=== PATIENT | male | born 1935 | race Caucasian/White ===

== ENCOUNTER 2016-07-20 03:26 | Emergency (ER) | payer MEDICARE, BC ==
[2016-07-20] MEDS ORDERED: IPRATROPIUM/ALBUTEROL (0.5MG/3MG) NEB INH ONE (03:33)
--- NOTE | 2016-07-20 03:38 | Emergency Department Record ---
History of Present Illness - General Chief Complaint: Difficulty Breathing Stated Complaint: jaya Time Seen by Provider: 07/20/16 03:31 Source: Patient Mode of Arrival: Ambulatory Limitations: No limitations - History of Present Illness Initial Comments: 80 yo male presents to ED with a CC of difficulty breathing and non-productive cough symptoms for the past 2-3 days. Patient denies fevers, or chills, does report "chest heaviness". Patient denies previous history of lung problems ( record reveals COPD), reports history of CAD s/p stents x4, IDDM, and HTN. MD Complaint: Shortness of breath Onset/Timin -: Days(s) Severity: Moderate Quality: Other ("heavy") Consistency: Intermittent Improves With: Nothing Worsens With: Exertion Known History Of: COPD Context: Recent illness, Recent URI Associated Symptoms: Denies other symptoms Treatments Prior to Arrival: None - Related Data Home Oxygen Therapy: No Home Medications Medication Instructions Recorded Confirmed Last Taken Hydrochlorothiazide [Hctz 25Mg] 25 mg PO DAILY 02/10/15 07/20/16 02/15/16 Insulin Glargine,Hum.rec.anlog 27 units SQ QPM 02/10/15 07/20/16 02/14/16 [Lantus] Insulin Lispro [Humalog] 4 units SQ TID 02/10/15 07/20/16 02/15/16 Levothyroxine Sodium [Synthroid] 100 mcg PO DAILY 02/10/15 07/20/16 02/15/16 Lisinopril [Zestril] 20 mg PO DAILY 02/10/15 07/20/16 02/15/16 Metformin HCl [Metformin HCl] 1,000 mg PO BID 02/10/15 07/20/16 02/15/16 Simvastatin [Zocor] 40 mg PO DAILY 02/10/15 07/20/16 02/14/16 Clopidogrel Bisulfate [Plavix] 75 mg PO DAILY 07/20/16 07/20/16 Unknown Metoprolol Tartrate [Metoprolol 12.5 mg PO BID 07/20/16 07/20/16 Unknown Tartrate] Pantoprazole Sodium [Protonix] 40 mg PO DAILY 07/20/16 07/20/16 Unknown Previous Rx's Medication Instructions Recorded Albuterol Sulfate [Proair Hfa] 2 puff IH QID PRN #1 inhaler 02/15/16 Prednisone [Prednisone 20Mg] 20 mg PO DAILY #15 tab 07/20/16 Allergies Allergy/AdvReac Type Severity Reaction Status Date / Time Penicillins Allergy Unknown HIVES Verified 07/20/16 03:28 Review of Systems Constitutional: Denies: Chills, Fever, Malaise, Night sweats Eyes: Denies: Eye discharge, Eye pain ENT: Denies: Congestion, Ear pain, Epistaxis Respiratory: Reports: Cough, Dyspnea Cardiovascular: Reports: Chest pain. Denies: Dyspnea on exertion Endocrine: Denies: Fatigue, Heat or cold intolerance Gastrointestinal: Denies: Abdominal pain, Nausea, Vomiting Musculoskeletal: Denies: Arthralgia, Back pain, Gout, Joint swelling Skin: Denies: Bruising, Change in color Neurological: Denies: Abnormal gait, Confusion, Seizure Psychiatric: Denies: Anxiety Hematological/Lymphatic: Denies: Anemia, Blood Clots Past Medical History - SOCIAL HISTORY Smoking Status: Former smoker - RESPIRATORY Hx Respiratory Disorders: Yes - CARDIOVASCULAR Hx Cardio Disorders: Yes Hx Hypertension: Yes Comment:: high cholesterol - NEURO Hx Neuro Disorders: No - GI Hx GI Disorders: Yes Hx Reflux: Yes (occasional) Comment:: dysphagia - Hx Genitourinary Disorders: Yes Hx Bladder Problem: Yes (infection (a few years ago)) - ENDOCRINE Hx Endocrine Disorders: Yes Hx Diabetes: Yes Hx Thyroid Disease: Yes (low) - MUSCULOSKELETAL Hx Musculoskeletal Disorders: Yes Hx Arthritis: Yes - PSYCH Hx Psych Problems: No - HEMATOLOGY/ONCOLOGY Hx Hematology/Oncology Disorders: No Family Medical History Hx Dementia: Mother Hx HTN: Mother Hx Stroke: Mother Physical Exam - General General Appearance: Alert, Oriented x3, Cooperative, Mild distress Limitations: No limitations - Head Head exam: Atraumatic, Normocephalic, Normal inspection Head exam detail: negative: Abrasion, Contusion, Jackson's sign, General tenderness, Hematoma, Laceration - Eye Eye exam: Normal appearance. negative: Conjunctival injection, Periorbital swelling, Periorbital tenderness, Scleral icterus - ENT Ear exam: negative: Auricular hematoma, Auricular trauma Nasal Exam: negative: Active bleeding, Discharge, Dried blood, Foreign body Mouth exam: negative: Drooling, Laceration, Muffled voice, Tongue elevation - Neck Neck exam: Normal inspection. negative: Meningismus, Tenderness - Respiratory Respiratory exam: Decreased breath sounds, Wheezes. negative: Respiratory distress, Rhonchi, Stridor - Cardiovascular Cardiovascular Exam: Normal rhythm, Normal heart sounds, Irregular rhythm - GI/Abdominal GI/Abdominal exam: Soft. negative: Rebound, Rigid, Tenderness - Rectal Rectal exam: Deferred - exam: Deferred - Extremities Extremities exam: Normal inspection. negative: Calf tenderness, Pedal edema, Tenderness - Back Back exam: Reports: Normal inspection. Denies: CVA tenderness (R), CVA tenderness (L), Paraspinal tenderness, Rash noted - Neurological Neurological exam: Alert, Normal gait, Oriented X3 - Psychiatric Psychiatric exam: Normal affect, Normal mood - Skin Skin exam: Normal color. negative: Abrasion Type of lesion: negative: abrasion Course - Reevaluation(s) Reevaluation #1: 07/20/16 03:37 EKG: NSR with PACs Normal axis, normal intervals No acute ST-T wave changes Reevaluation #2: 07/20/16 03:58 Labs reviewed, Na 129, Glucose 233. Labs are otherwise grossly unremarkable for an acute process. Reevaluation #3: 07/20/16 04:08 CXR: Appearance consistent with COPD. Solumedrol ordered following Duoneb, reports improvement in his symptoms. Biox 99-100% RA, pulse down to 84. Will perform ambulating biox and reassess. Reevaluation #4: 07/20/16 04:26 Patient oxygen saturation 95-98% while ambulating, patient reports that his symptoms were improved. Patient was given the choice of staying for 12-24 hour observation, reports that he is feeling better and that he would prefer to go home at this time. Patient appears stable for discharge at this time with return for any worsening of his symptoms. Medical Decision Making - Lab Data Result diagrams: 07/20/16 03:42 07/20/16 03:42 Disposition Disposition: Discharge Clinical Impression: COPD (chronic obstructive pulmonary disease) Qualifiers: COPD type: unspecified COPD Qualified Code(s): J44.9 - Chronic obstructive pulmonary disease, unspecified Disposition: Home, Self-Care Condition: (2) Stable Instructions: Chronic Obstructive Pulmonary Disease (ED) Additional Instructions: Return to ED if your symptoms worsen or if you have any concerns. Prednisone as directed. Follow-up with Dr. Yee in 1-3 days as directed. Prescriptions: Prednisone [Prednisone 20Mg] 20 mg PO DAILY #15 tab Forms: Patient Portal Access Time of Disposition: 04:13
[2016-07-20 03:44] LABS: BASO % 0.7 % (0-6); EOS % 7.8 % (0-6); GRAN % 55.9 % (47-80); HEMATOCRIT 36.6 % (42.0-52.0); HEMOGLOBIN 12.5 gm/dl (14.0-18.0); MEAN CELL VOLUME 85.1 fl (81-97); MEAN CORPUSCULAR HGB CONC 34.2 g/dl (32-36); MEAN PLATELET VOLUME 9.5 fl (7.4-10.4); MONO % 13.6 % (0-9); PLATELET COUNT 337 K/uL (130-400); RED CELL DISTRIBUTION WIDTH 13.1 % (11.5-14.5); WHITE BLOOD COUNT W/O DIFF 8.3 K/uL (4.2-12.2)
[2016-07-20 03:54] LABS: ALB/GLOB RATIO 1.3 (1.1-1.8); ALBUMIN 3.8 gm/dL (3.5-5.0); ALKALINE PHOSPHATASE 131 U/L (38-126); ALT/SGPT 18 U/L (21-72); ANION GAP 11.4 (7-16); AST/SGOT 15 U/L (17-59); BLOOD UREA NITROGEN 12 mg/dL (9-20); CARBON DIOXIDE 26.6 mmol/L (22-30); CREATINE PHOSPHOKINASE 75 U/L (55-170); CREATININE 0.8 mg/dL (0.66-1.25); EST GLOMERULAR FILTRATION RATE > 60 ml/min; GLUCOSE,RANDOM 233 mg/dL (70-110); TOTAL PROTEIN 6.7 gm/dL (6.3-8.2)
[2016-07-20 03:59] LABS: CKMB 2.7 ng/mL (0-4.3); TROPONIN I < 0.050 ng/mL (0.0-0.4)
[2016-07-20] MEDS ORDERED: METHYLPREDNISOLONE PF 125MG/VIAL IVP ONE (04:07)
--- NOTE | 2016-07-22 13:51 | RADIOLOGY REPORT ---
EXAM: CHEST, TWO VIEWS HISTORY: DIFFICULTY BREATHING. TECHNIQUE: Frontal and lateral views of the chest were performed. FINDINGS: The heart size is normal. The lungs are hyperinflated. No acute type infiltrate or pleural effusion. Osteopenia. IMPRESSION: HYPERINFLATED LUNGS. NO ACUTE TYPE INFILTRATE OR PLEURAL EFFUSION. JOB NUMBER: [id number] [facility]TD[facility]
== END 2016-07-20 04:28 | disposition home or self-care (01) ==
LOC: ER 03:26
DX: J44.9 Chronic obstructive pulmonary disease, unspecified (principal); E11.9 Type 2 diabetes mellitus without complications; Z79.4 Long term (current) use of insulin; I10 Essential (primary) hypertension; Z87.891 Personal history of nicotine dependence
CPT/HCPCS: 71020; 80053; 82550; 82553; 83880; 84484; 85025; 93005; 93010; 94640; 96374; 99284; J2930

== ENCOUNTER 2016-07-22 11:54 | Emergency (ER) | payer MEDICARE, BC ==
[2016-07-22] MEDS ORDERED: IPRATROPIUM/ALBUTEROL (0.5MG/3MG) NEB INH ONE (12:41)
[2016-07-22] MEDS ORDERED: ALBUTEROL SULFATE (0.083%) 2.5 MG/3 ML NEB INH ONE (12:52)
[2016-07-22 13:21] LABS: BASO % 0.1 % (0-6); EOS % 0.6 % (0-6); GRAN % 78.4 % (47-80); HEMATOCRIT 36.7 % (42.0-52.0); HEMOGLOBIN 12.4 gm/dl (14.0-18.0); LYMPH % 16.4 % (16-45); MEAN CELL VOLUME 85.5 fl (81-97); MEAN CORPUSCULAR HEMOGLOBIN 28.9 pg (27-33); MEAN CORPUSCULAR HGB CONC 33.8 g/dl (32-36); MEAN PLATELET VOLUME 9.7 fl (7.4-10.4); MONO % 4.5 % (0-9); PLATELET COUNT 385 K/uL (130-400); RED BLOOD COUNT 4.29 M/uL (4.40-5.70); RED CELL DISTRIBUTION WIDTH 13.1 % (11.5-14.5); WHITE BLOOD COUNT W/O DIFF 10.1 K/uL (4.2-12.2)
[2016-07-22 13:31] LABS: ANION GAP 15.2 (7-16); BLOOD UREA NITROGEN 13 mg/dL (9-20); CARBON DIOXIDE 26.8 mmol/L (22-30); CREATININE 0.7 mg/dL (0.66-1.25); EST GLOMERULAR FILTRATION RATE > 60 ml/min; GLUCOSE,RANDOM 198 mg/dL (70-110)
--- NOTE | 2016-07-22 13:43 | Emergency Department Record ---
History of Present Illness - General Chief Complaint: Difficulty Breathing Stated Complaint: MICHAEL Time Seen by Provider: 07/22/16 12:35 Mode of Arrival: Ambulatory - History of Present Illness Initial Comments: seen in ED 2 days ago and chest xray neg and labs and EKG benign. Patient had an episode of being SOB and returned but he was very SOB on arrival and no chest pain but after talking to him I wanted to retest his cardiac markers and EKG and repeat his chest xray. Patient has a hoarse voice and cough and he did have a rhinorrhea 2 days ago but that is getting better. Onset/Timin -: Month(s) Consistency: Intermittent Improves With: Rest, Upright position Worsens With: Exertion Known History Of: COPD Context: Recent URI Associated Symptoms: Cough Treatments Prior to Arrival: Bronchodilator Treatment Prior to Arrival Comment:: Not helping - Related Data Home Oxygen Therapy: No Home Medications Medication Instructions Recorded Confirmed Last Taken Hydrochlorothiazide [Hctz 25Mg] 25 mg PO DAILY 02/10/15 07/22/16 07/22/16 Insulin Glargine,Hum.rec.anlog 27 units SQ QPM 02/10/15 07/22/16 07/22/16 [Lantus] Insulin Lispro [Humalog] 4 units SQ TID 02/10/15 07/22/16 07/22/16 Levothyroxine Sodium [Synthroid] 100 mcg PO DAILY 02/10/15 07/22/16 07/22/16 Lisinopril [Zestril] 20 mg PO DAILY 02/10/15 07/22/16 07/22/16 Metformin HCl [Metformin HCl] 1,000 mg PO BID 02/10/15 07/22/16 07/22/16 Simvastatin [Zocor] 40 mg PO DAILY 02/10/15 07/22/16 07/22/16 Clopidogrel Bisulfate [Plavix] 75 mg PO DAILY 07/20/16 07/22/16 07/22/16 Metoprolol Tartrate [Metoprolol 12.5 mg PO BID 07/20/16 07/22/16 07/22/16 Tartrate] Pantoprazole Sodium [Protonix] 40 mg PO DAILY 07/20/16 07/22/16 07/22/16 Previous Rx's Medication Instructions Recorded Albuterol Sulfate [Proair Hfa] 2 puff IH QID PRN #1 inhaler 02/15/16 Prednisone [Prednisone 20Mg] 20 mg PO DAILY #15 tab 07/20/16 Azithromycin 500 mg PO DAILY #10 tablet 07/22/16 Allergies Allergy/AdvReac Type Severity Reaction Status Date / Time Penicillins Allergy Unknown HIVES Verified 07/22/16 12:01 Travel Screening - Travel/Exposure Within Last 30 Days Have you traveled within the last 30 days?: No - Travel/Exposure Within Last Year Have you traveled outside the [place] in the last year?: No - Additonal Travel Details Have you been exposed to anyone with a communicable illness?: No - Travel Symptoms Symptom Screening: None Review of Systems Reviewed: No additional complaints except as noted below Constitutional: Reports: As per HPI. Denies: Chills, Fever, Malaise, Night sweats, Weakness, Weight change Eyes: Reports: As per HPI. Denies: Eye discharge, Eye pain, Photophobia, Vision change ENT: Reports: As per HPI, Congestion. Denies: Dental pain, Ear pain, Epistaxis , Hearing loss, Throat pain Respiratory: Reports: As per HPI, Cough. Denies: Dyspnea, Hemoptysis, Stridor, Wheezes Cardiovascular: Reports: As per HPI. Denies: Arrhythmia, Chest pain, Dyspnea on exertion, Edema, Murmurs, Orthopnea, Palpitations, Paroxysmal nocturnal dyspnea, Rheumatic Fever, Syncope Endocrine: Reports: As per HPI. Denies: Fatigue, Heat or cold intolerance, Polydipsia, Polyuria Gastrointestinal: Reports: As per HPI. Denies: Abdominal pain, Constipation, Diarrhea, Hematemesis, Hematochezia, Melena, Nausea, Vomiting Genitourinary: Reports: As per HPI. Denies: Dysuria, Frequency, Hematuria, Incontinence, Retention, Testicular pain, Testicular mass, Urgency Musculoskeletal: Reports: As per HPI. Denies: Arthralgia, Back pain, Gout, Joint swelling, Myalgia, Neck pain Skin: Reports: As per HPI. Denies: Bruising, Change in color, Change in hair/ nails, Lesions, Pruritus, Rash Neurological: Reports: As per HPI. Denies: Abnormal gait, Confusion, Headache, Numbness, Paresthesias, Seizure, Tingling, Tremors, Vertigo, Weakness Psychiatric: Reports: As per HPI. Denies: Anxiety, Auditory hallucinations, Depression, Homicidal thoughts, Suicidal thoughts, Visual hallucinations Hematological/Lymphatic: Reports: As per HPI. Denies: Anemia, Blood Clots, Easy bleeding, Easy bruising, Swollen glands Past Medical History - SOCIAL HISTORY Smoking Status: Former smoker Alcohol Use: None Drug Use: None - RESPIRATORY Hx Respiratory Disorders: Yes - CARDIOVASCULAR Hx Cardio Disorders: Yes Hx Hypertension: Yes Comment:: high cholesterol - NEURO Hx Neuro Disorders: No - GI Hx GI Disorders: Yes Hx Reflux: Yes (occasional) Comment:: dysphagia - Hx Genitourinary Disorders: Yes Hx Bladder Problem: Yes (infection (a few years ago)) - ENDOCRINE Hx Endocrine Disorders: Yes Hx Diabetes: Yes Hx Thyroid Disease: Yes (low) - MUSCULOSKELETAL Hx Musculoskeletal Disorders: Yes Hx Arthritis: Yes - PSYCH Hx Psych Problems: No - HEMATOLOGY/ONCOLOGY Hx Hematology/Oncology Disorders: No Family Medical History Any Significant Family History?: Yes Hx Dementia: Mother Hx HTN: Mother Hx Stroke: Mother Physical Exam - General General Appearance: Alert, Oriented x3, Cooperative, No acute distress - Head Head exam: Normal inspection - Eye Eye exam: Normal appearance, PERRL Pupils: Normal accommodation - ENT ENT exam: Normal exam, Mucous membranes moist, Normal external ear exam, Normal orophraynx, TM's normal bilaterally Ear exam: Normal external inspection. negative: External canal tenderness Nasal Exam: Normal inspection. negative: Discharge, Sinus tenderness Mouth exam: Normal external inspection, Tongue normal Teeth exam: Normal inspection. negative: Dental caries Throat exam: Normal inspection. negative: Tonsillar erythema, Tonsillar exudate - Neck Neck exam: Normal inspection, Full ROM. negative: Tenderness - Respiratory Respiratory exam: Normal lung sounds bilaterally. negative: Respiratory distress - Cardiovascular Cardiovascular Exam: Regular rate, Normal rhythm, Normal heart sounds - GI/Abdominal GI/Abdominal exam: Soft, Normal bowel sounds. negative: Tenderness - Rectal Rectal exam: Deferred - exam: Deferred - Extremities Extremities exam: Normal inspection, Full ROM, Normal capillary refill. negative: Tenderness - Back Back exam: Reports: Normal inspection, Full ROM. Denies: Muscle spasm, Rash noted, Tenderness - Neurological Neurological exam: Alert, Normal gait, Oriented X3, Reflexes normal - Psychiatric Psychiatric exam: Normal affect, Normal mood - Skin Skin exam: Dry, Intact, Normal color, Warm Course Vital Signs 07/22/16 07/22/16 07/22/16 12:00 12:02 12:44 Temperature 97.4 F L Pulse Rate 85 73 Pulse Rate [ 77 Pulse Ox Probe] Respiratory 20 28 H 15 Rate Blood Pressure 175/82 Pulse Ox 94 L 94 L 94 L 07/22/16 13:11 Temperature Pulse Rate 72 Pulse Rate [ Pulse Ox Probe] Respiratory 12 Rate Blood Pressure Pulse Ox 95 Medical Decision Making - Data Complexity MDM Data: Labs Ordered and/or Reviewed (cardiac labs neg), X-Ray Ordered and/or Reviewed (cardiac labs are neg), EKG Ordered and/or Reviewed (No acute changes) - Lab Data Result diagrams: 07/22/16 13:06 07/22/16 13:06 Lab Results 07/22/16 07/22/16 07/22/16 Range/Units 13:06 13:06 13:06 WBC 10.1 (4.2-12.2) K/uL RBC 4.29 L (4.40-5.70) M/uL Hgb 12.4 L (14.0-18.0) gm/dl Hct 36.7 L (42.0-52.0) % MCV 85.5 (81-97) fl MCH 28.9 (27-33) pg MCHC 33.8 (32-36) g/dl RDW 13.1 (11.5-14.5) % Plt Count 385 (130-400) K/uL MPV 9.7 (7.4-10.4) fl Gran % 78.4 (47-80) % Lymphocytes % 16.4 (16-45) % Monocytes % 4.5 (0-9) % Eosinophils % 0.6 (0-6) % Basophils % 0.1 (0-6) % PTT 31.00 (24.5-39.1) SECONDS Sodium 135 L (136-145) mmol/L Potassium 4.3 (3.5-5.1) mmol/L Chloride 93 L (98-107) mmol/L Carbon Dioxide 26.8 (22-30) mmol/L Anion Gap 15.2 (7-16) BUN 13 (9-20) mg/dL Creatinine 0.7 (0.66-1.25) mg/dL Estimated GFR > 60 ml/min Random Glucose 198 H (70-110) mg/dL Calcium 8.6 (8.5-10.1) mg/dL Disposition Clinical Impression: Bronchitis COPD (chronic obstructive pulmonary disease) Qualifiers: COPD type: unspecified COPD Qualified Code(s): J44.9 - Chronic obstructive pulmonary disease, unspecified Disposition: Home, Self-Care Condition: (1) Good Instructions: Acute Bronchitis (ED), Chronic Obstructive Pulmonary Disease (ED) Additional Instructions: follow up with Dr. Yee in 5 days continue prednisone and inhaler drink fluid Prescriptions: Azithromycin 500 mg PO DAILY #10 tablet Forms: Patient Portal Access Time of Disposition: 14:48
[2016-07-22 13:52] LABS: CKMB 2.4 ug/L (0-6)
[2016-07-22 13:57] LABS: TROPONIN I < 0.012 ng/mL (0.00-0.034)
--- NOTE | 2016-07-27 09:35 | RADIOLOGY REPORT ---
EXAM: CHEST, TWO VIEWS HISTORY: PRODUCTIVE COUGH SINCE APRIL. DIFFICULTY IN BREATHING. TECHNIQUE: Upright PA and lateral views of the chest were obtained. Comparison: Two view chest radiographic examination dated 07/20/16. FINDINGS: The heart is normal in size and the pulmonary vasculature is nondilated. The thoracic aorta is mildly tortuous and atherosclerotic. The lungs are hyperinflated consistent with COPD. Minor linear scarring versus atelectasis again noted in each lung base. No lung consolidation, costophrenic angle blunting or pneumothorax. A tiny calcified granuloma is again suggested in the right lung apex. Subtle increased opacity projecting at the level of the seventh costochondral junctions likely relates to nipple shadows given the symmetric appearance. There are degenerative changes scattered within the visualized spine. IMPRESSION: 1. HYPERINFLATION OF THE LUNGS CONSISTENT WITH COPD. 2. MINOR LINEAR SCARRING WITHIN EACH LUNG BASE. 3. CALCIFIED GRANULOMA WITHIN THE RIGHT LUNG APEX. 4. NO CONVINCING EVIDENCE OF AN ACUTE INTRATHORACIC PROCESS. JOB NUMBER: [id number] [facility]
== END 2016-07-22 15:23 | disposition home or self-care (01) ==
LOC: ER 11:54
DX: J44.9 Chronic obstructive pulmonary disease, unspecified (principal); J20.9 Acute bronchitis, unspecified; Z87.891 Personal history of nicotine dependence; E11.9 Type 2 diabetes mellitus without complications; Z79.4 Long term (current) use of insulin
CPT/HCPCS: 71020; 80048; 82553; 84484; 85025; 85730; 93005; 93010; 94640; 99284; J7613

== ENCOUNTER 2016-10-21 08:26 | Emergency (ER) | payer MEDICARE, BC ==
--- NOTE | 2016-10-21 09:06 | Emergency Department Record ---
History of Present Illness - General Chief Complaint: Shortness of breath Stated Complaint: SHORTNESS OF BREATH Time Seen by Provider: 10/21/16 09:04 Source: Patient Mode of Arrival: Ambulatory - History of Present Illness Initial Comments: SOB STARTED yesterday and he has COPD and doesn't use oxygen and uses combivent inhaler. he used his combivent 6 times yesterday. Patient has a chronic cough and the sputum is worse than usual. Onset/Timin -: Days(s) Consistency: Constant Improves With: Nothing Worsens With: Exertion, Lying flat Associated Symptoms: Pain with inspiration Treatments Prior to Arrival: Bronchodilator - Related Data Home Medications Medication Instructions Recorded Confirmed Last Taken Hydrochlorothiazide [Hctz 25Mg] 25 mg PO DAILY 02/10/15 07/22/16 07/22/16 Insulin Glargine,Hum.rec.anlog 27 units SQ QPM 02/10/15 07/22/16 07/22/16 [Lantus] Insulin Lispro [Humalog] 4 units SQ TID 02/10/15 07/22/16 07/22/16 Levothyroxine Sodium [Synthroid] 100 mcg PO DAILY 02/10/15 07/22/16 07/22/16 Lisinopril [Zestril] 20 mg PO DAILY 02/10/15 07/22/16 07/22/16 Metformin HCl [Metformin HCl] 1,000 mg PO BID 02/10/15 07/22/16 07/22/16 Simvastatin [Zocor] 40 mg PO DAILY 02/10/15 07/22/16 07/22/16 Clopidogrel Bisulfate [Plavix] 75 mg PO DAILY 07/20/16 07/22/16 07/22/16 Metoprolol Tartrate [Metoprolol 12.5 mg PO BID 07/20/16 07/22/16 07/22/16 Tartrate] Pantoprazole Sodium [Protonix] 40 mg PO DAILY 07/20/16 07/22/16 07/22/16 Previous Rx's Medication Instructions Recorded Albuterol Sulfate [Proair Hfa] 2 puff IH QID PRN #1 inhaler 02/15/16 Prednisone [Prednisone 20Mg] 20 mg PO DAILY #15 tab 07/20/16 Azithromycin 500 mg PO DAILY #10 tablet 07/22/16 Azithromycin [Zithromax] 250 mg PO DAILY #6 tab 10/21/16 Prednisone [Prednisone 10Mg] 10 mg PO ASDIR #30 tab 10/21/16 Allergies Allergy/AdvReac Type Severity Reaction Status Date / Time Penicillins Allergy Unknown HIVES Verified 07/22/16 12:01 Travel Screening - Travel/Exposure Within Last 30 Days Have you traveled within the last 30 days?: No Review of Systems Reviewed: No additional complaints except as noted below Constitutional: Reports: As per HPI. Denies: Chills, Fever, Malaise, Night sweats, Weakness, Weight change Eyes: Reports: As per HPI. Denies: Eye discharge, Eye pain, Photophobia, Vision change ENT: Reports: As per HPI, Congestion. Denies: Dental pain, Ear pain, Epistaxis , Hearing loss, Throat pain Respiratory: Reports: As per HPI, Cough. Denies: Dyspnea, Hemoptysis, Stridor, Wheezes Cardiovascular: Reports: As per HPI. Denies: Arrhythmia, Chest pain, Dyspnea on exertion, Edema, Murmurs, Orthopnea, Palpitations, Paroxysmal nocturnal dyspnea, Rheumatic Fever, Syncope Endocrine: Reports: As per HPI. Denies: Fatigue, Heat or cold intolerance, Polydipsia, Polyuria Gastrointestinal: Reports: As per HPI. Denies: Abdominal pain, Constipation, Diarrhea, Hematemesis, Hematochezia, Melena, Nausea, Vomiting Genitourinary: Reports: As per HPI. Denies: Dysuria, Frequency, Hematuria, Incontinence, Retention, Testicular pain, Testicular mass, Urgency Musculoskeletal: Reports: As per HPI. Denies: Arthralgia, Back pain, Gout, Joint swelling, Myalgia, Neck pain Skin: Reports: As per HPI. Denies: Bruising, Change in color, Change in hair/ nails, Lesions, Pruritus, Rash Neurological: Reports: As per HPI. Denies: Abnormal gait, Confusion, Headache, Numbness, Paresthesias, Seizure, Tingling, Tremors, Vertigo, Weakness Psychiatric: Reports: As per HPI. Denies: Anxiety, Auditory hallucinations, Depression, Homicidal thoughts, Suicidal thoughts, Visual hallucinations Hematological/Lymphatic: Reports: As per HPI. Denies: Anemia, Blood Clots, Easy bleeding, Easy bruising, Swollen glands Past Medical History - SOCIAL HISTORY Smoking Status: Former smoker Alcohol Use: None Drug Use: None - RESPIRATORY Hx Respiratory Disorders: Yes Hx COPD: Yes - CARDIOVASCULAR Hx Cardio Disorders: Yes Hx Hypertension: Yes Comment:: high cholesterol - NEURO Hx Neuro Disorders: No - GI Hx GI Disorders: Yes Hx Reflux: Yes (occasional) Comment:: dysphagia - Hx Genitourinary Disorders: Yes Hx Bladder Problem: Yes (infection (a few years ago)) - ENDOCRINE Hx Endocrine Disorders: Yes Hx Diabetes: Yes Hx Thyroid Disease: Yes (low) - MUSCULOSKELETAL Hx Musculoskeletal Disorders: Yes Hx Arthritis: Yes - PSYCH Hx Psych Problems: No - HEMATOLOGY/ONCOLOGY Hx Hematology/Oncology Disorders: No Family Medical History Any Significant Family History?: Yes Hx Dementia: Mother Hx HTN: Mother Hx Stroke: Mother Physical Exam - General General Appearance: Alert, Oriented x3, Cooperative, No acute distress - Head Head exam: Normal inspection - Eye Eye exam: Normal appearance, PERRL Pupils: Normal accommodation - ENT ENT exam: Normal exam, Mucous membranes moist, Normal external ear exam, Normal orophraynx, TM's normal bilaterally Ear exam: Normal external inspection. negative: External canal tenderness Nasal Exam: Normal inspection. negative: Discharge, Sinus tenderness Mouth exam: Normal external inspection, Tongue normal Teeth exam: Normal inspection. negative: Dental caries Throat exam: Normal inspection. negative: Tonsillar erythema, Tonsillar exudate - Neck Neck exam: Normal inspection, Full ROM. negative: Tenderness - Respiratory Respiratory exam: Normal lung sounds bilaterally. negative: Respiratory distress - Cardiovascular Cardiovascular Exam: Regular rate, Normal rhythm, Normal heart sounds - GI/Abdominal GI/Abdominal exam: Soft, Normal bowel sounds. negative: Tenderness - Rectal Rectal exam: Deferred - exam: Deferred - Extremities Extremities exam: Normal inspection, Full ROM, Normal capillary refill. negative: Tenderness - Back Back exam: Reports: Normal inspection, Full ROM. Denies: Muscle spasm, Rash noted, Tenderness - Neurological Neurological exam: Alert, Normal gait, Oriented X3, Reflexes normal - Psychiatric Psychiatric exam: Normal affect, Normal mood - Skin Skin exam: Dry, Intact, Normal color, Warm Course Vital Signs 10/21/16 08:32 Temperature 98.4 F Pulse Rate 77 Respiratory 20 Rate Blood Pressure 186/91 Pulse Ox 98 Medical Decision Making - Data Complexity MDM Data: Labs Ordered and/or Reviewed (neg), X-Ray Ordered and/or Reviewed ( advanced emphysema), EKG Ordered and/or Reviewed (no acute changes) - Lab Data Result diagrams: 10/21/16 10:01 10/21/16 10:01 Disposition Clinical Impression: COPD (chronic obstructive pulmonary disease) with acute bronchitis Disposition: Home, Self-Care Condition: (1) Good Instructions: Emphysema (ED), Acute Bronchitis (ED) Additional Instructions: follow up with Dr. Yee on wednesday Prescriptions: Prednisone [Prednisone 10Mg] 10 mg PO ASDIR #30 tab Azithromycin [Zithromax] 250 mg PO DAILY #6 tab Forms: Patient Portal Access Time of Disposition: 10:58
[2016-10-21] MEDS: IPRATROPIUM/ALBUTEROL (0.5MG/3MG) NEB INH ONE (09:31)
[2016-10-21] MEDS: ASPIRIN 81 MG CHEWABLE TABLET PO ONE (10:06)
[2016-10-21] MEDS: METHYLPREDNISOLONE PF 125MG/VIAL IVP ONE (10:06)
[2016-10-21 10:11] LABS: BASO % 0.7 % (0-6); EOS % 6.5 % (0-6); GRAN % 63.3 % (47-80); HEMOGLOBIN 12.7 gm/dl (14.0-18.0); LYMPH % 21.2 % (16-45); MEAN CORPUSCULAR HEMOGLOBIN 28.4 pg (27-33); MEAN CORPUSCULAR HGB CONC 33.4 g/dl (32-36); MEAN PLATELET VOLUME 9.7 fl (7.4-10.4); MONO % 8.3 % (0-9); PLATELET COUNT 344 K/uL (130-400); RED BLOOD COUNT 4.47 M/uL (4.40-5.70); RED CELL DISTRIBUTION WIDTH 14.2 % (11.5-14.5)
[2016-10-21 10:23] LABS: ANION GAP 6.7 (7-16); BLOOD UREA NITROGEN 8 mg/dL (9-20); CARBON DIOXIDE 27.3 mmol/L (22-30); CREATININE 0.6 mg/dL (0.66-1.25); EST GLOMERULAR FILTRATION RATE > 60 ml/min; GLUCOSE,RANDOM 246 mg/dL (70-110)
[2016-10-21 10:35] LABS: CKMB 2.7 ug/L (0-6)
[2016-10-21 10:39] LABS: TROPONIN I < 0.012 ng/mL (0.00-0.034)
[2016-10-21] MEDS: AZITHROMYCIN 500 MG TABLET PO ONE (11:07)
== END 2016-10-21 11:20 | disposition home or self-care (01) ==
LOC: ER 08:26
DX: J44.9 Chronic obstructive pulmonary disease, unspecified (principal); R20.9 Unspecified disturbances of skin sensation; Z87.891 Personal history of nicotine dependence; I10 Essential (primary) hypertension
CPT/HCPCS: 71020; 80048; 82553; 84484; 85025; 85730; 93005; 93010; 94640; 96374; 99284; J2930

== ENCOUNTER 2018-01-13 08:32 | Day surgery (SDC) | payer MEDICARE, BC ==
[2018-01-13] MEDS ORDERED: LIDOCAINE 2% MDV (20MG/ML) 20ML VIAL IV ONE (08:33)
[2018-01-13] MEDS ORDERED: TETRACAINE HCL 0.5% 15 ML OPTH BTL OPTH ONE (08:33)
[2018-01-13] MEDS ORDERED: PROPOFOL 10 MG/ML VIAL IV ONE (08:33)
[2018-01-13] MEDS ORDERED: NEOMYCIN/POLY./DEXAM OPTH OINT OPTH ONE (08:33)
[2018-01-13] MEDS ORDERED: EPINEPHRINE 1 MG/ML AMPUL SQ ONE (08:33)
[2018-01-13] MEDS ORDERED: CIPROFLOXACIN HCL 0.0015 GM, PHENYLEPHRINE HCL 0.05 GM, KETOROLAC TROMETHAMINE 0.000625 GM MC ONE ×5 (14:00)
--- NOTE | 2018-01-13 20:51 | OP NOTE CHAMES ---
DATE OF PROCEDURE: 01/13/18 PREOPERATIVE DIAGNOSIS: Nuclear sclerotic and cortical cataract, right eye. POSTOPERATIVE DIAGNOSIS: Nuclear sclerotic and cortical cataract, right eye. OPERATION: Phacoemulsification of cataractous lens with implantation of intraocular lens. LENS IMPLANT USED: Carter Model PCB00 + 18.5 diopters. COMPLICATIONS: None. PROCEDURE IN DETAIL: Following a retrobulbar and facial block, the patient was prepped and draped in the usual fashion for eye surgery. A lid speculum was placed in the right eye after which a 2.4 mm tunnel wound was placed at the temporal limbus and dissected into clear cornea. A paracentesis was placed at 2 oclock hours to the left and right of the initial incision and the chamber deepened with Viscoelastic. The keratome was then used to enter the anterior chamber after which the continuous circular capsulorrhexis was accomplished without difficulty using a bent needle and a Utrata forceps. Hydrodissection and hydrodelineation of the lens was performed after which the nucleus of the lens was removed using the Phaco handpiece in the nixxhx-tkh-edcirot technique. The residual cortical material was irrigated and aspirated from the eye after which the bag and chamber were re-examined. The bag was re-inflated with Viscoelastic and the intraocular lens injected into the capsular bag where it centered well. The Viscoelastic was then copiously irrigated and aspirated from the eye after which the temporal tunnel wound and paracentesis were hydrated and the wounds were examined. They were noted to be watertight. The lid speculum was removed from the eye and the eye patched and shielded. The patient was transferred to the recovery room in satisfactory condition and given an appointment to be reexamined in the clinic later today or as directed by Dr. Roque. JOB NUMBER: [id number] [facility]
== END 2018-01-13 11:30 | disposition home or self-care (01) ==
LOC: SUR 08:32
PROVIDERS: ATTEND Ophthalmology
DX: H25.11 Age-related nuclear cataract, right eye (principal); I10 Essential (primary) hypertension; E11.65 Type 2 diabetes mellitus with hyperglycemia; Z79.4 Long term (current) use of insulin; Z51.81 Encounter for therapeutic drug level monitoring; Z12.5 Encounter for screening for malignant neoplasm of prostate; E03.9 Hypothyroidism, unspecified; Z00.00 Encounter for general adult medical examination without abnormal findings; E78.00 Pure hypercholesterolemia, unspecified; H40.9 Unspecified glaucoma; Z95.5 Presence of coronary angioplasty implant and graft
CPT/HCPCS: 66984; 00142; 84450; 84460; 85025; 82306; 82150; 80048; 80053; 83036; 81003; 84443; 80061; G0103; J0171

== ENCOUNTER 2018-02-10 08:44 | Day surgery (SDC) | payer MEDICARE, BC ==
[2018-02-10] MEDS ORDERED: LABETALOL HCL 5MG/ML, 20ML VIAL IV ONE (08:45)
[2018-02-10] MEDS ORDERED: TETRACAINE HCL 0.5% 15 ML OPTH BTL OPTH ONE (08:45)
[2018-02-10] MEDS ORDERED: LIDOCAINE 2% MDV (20MG/ML) 20ML VIAL IV ONE ×2 (08:45)
[2018-02-10] MEDS ORDERED: PROPOFOL 10 MG/ML VIAL IV ONE (08:45)
[2018-02-10] MEDS ORDERED: EPINEPHRINE 1 MG/ML AMPUL SQ ONE (08:45)
[2018-02-10] MEDS ORDERED: NEOMYCIN/POLY./DEXAM OPTH OINT OPTH ONE (08:45)
[2018-02-10] MEDS ORDERED: CIPROFLOXACIN HCL 0.0015 GM, PHENYLEPHRINE HCL 0.05 GM, KETOROLAC TROMETHAMINE 0.000625 GM MC ONE ×5 (15:30)
--- NOTE | 2018-02-10 22:11 | Operative Note ---
DATE OF PROCEDURE: 02/10/18. PREOPERATIVE DIAGNOSIS: Nuclear sclerotic cataract, left eye. POSTOPERATIVE DIAGNOSIS: Nuclear sclerotic cataract, left eye. OPERATION: Phacoemulsification of cataractous lens with implantation of intraocular lens. LENS IMPLANT USED: Carter Model PCB00 + 19.0 diopters. COMPLICATIONS: None. PROCEDURE IN DETAIL: Following a retrobulbar and facial block, the patient was prepped and draped in the usual fashion for eye surgery. A lid speculum was placed in the left eye after which a 2.4 mm tunnel wound was placed at the temporal limbus and dissected into clear cornea. A paracentesis was placed at 2 o'clock hours to the left and right of the initial incision and the chamber deepened with Viscoelastic. The keratome was then used to enter the anterior chamber after which the continuous circular capsulorrhexis was accomplished without difficulty using a bent needle and a Utrata forceps. Hydrodissection and hydrodelineation of the lens was performed after which the nucleus of the lens was removed using the Phaco handpiece in the nxhfej-kxc-lijemwl technique. The residual cortical material was irrigated and aspirated from the eye after which the bag and chamber were re-examined. The bag was re-inflated with Viscoelastic and the intraocular lens injected into the capsular bag where it centered well. The Viscoelastic was then copiously irrigated and aspirated from the eye after which the temporal tunnel wound and paracentesis were hydrated and the wounds were examined. They were noted to be watertight. The lid speculum was removed from the eye and the eye patched and shielded. The patient was transferred to the recovery room in satisfactory condition and given an appointment to be reexamined in the clinic later today or as directed by Dr. Roque. JOB NUMBER: [id number] [facility]
== END 2018-02-10 11:47 | disposition home or self-care (01) ==
LOC: SUR 08:44
PROVIDERS: ATTEND Ophthalmology
DX: H25.12 Age-related nuclear cataract, left eye (principal); E11.9 Type 2 diabetes mellitus without complications; Z79.4 Long term (current) use of insulin; I10 Essential (primary) hypertension; E03.9 Hypothyroidism, unspecified; E78.00 Pure hypercholesterolemia, unspecified; H40.9 Unspecified glaucoma
CPT/HCPCS: J0171

== ENCOUNTER 2018-12-24 11:52 | Emergency (ER) | payer MEDICARE, BC ==
--- NOTE | 2018-12-24 12:22 | Emergency Department Record ---
History of Present Illness - General Chief complaint: Extremity Problem Stated complaint: SWELLING LT HAND Time Seen by Provider: 12/24/18 12:15 Source: Patient, Family () Mode of Arrival: Ambulatory - History of Present Illness Initial comments: The patient states that his left nondominant hand is swelling and slightly red and warm. He had this 5-6 weeks ago and was given clindamycin for it which completely resolved the infection. He denies any injury to his hand or any fevers, chills, or other new probelms. He is a diabetic on insulin who uses a sliding scale for his daily blood sugar. Today his blood sugar was 201 and he took his appropriate level of insulin for it. Onset/Timin -: Hour(s) Location: Left, Other History of Same: Yes Radiation: None Severity scale (1-10): 1 Consistency: Other Improves with: Cold therapy Worsens with: Exertion Associated Symptoms: Denies other symptoms - Related Data Previous Rx's Medication Instructions Recorded Albuterol Sulfate [Proair Hfa] 2 puff IH QID PRN #1 inhaler 02/15/16 Clindamycin HCl [Cleocin HCl] 300 mg PO QID #39 capsule 12/24/18 Allergies Allergy/AdvReac Type Severity Reaction Status Date / Time Penicillins Allergy Intermediate HIVES Verified 12/24/18 11:59 methotrexate Allergy HIVES Verified 12/24/18 12:00 Travel Screening - Travel/Exposure Within Last 30 Days Have you traveled within the last 30 days?: No - Travel/Exposure Within Last Year Have you traveled outside the [place] in the last year?: No - Additonal Travel Details Have you been exposed to anyone with a communicable illness?: No - Travel Symptoms Symptom Screening: None Review of Systems Reviewed: No additional complaints except as noted below Constitutional: Reports: As per HPI. Denies: Chills, Fever, Malaise, Night sweats, Weakness, Weight change Eyes: Reports: As per HPI. Denies: Eye discharge, Eye pain, Photophobia, Vision change ENT: Reports: As per HPI. Denies: Congestion, Dental pain, Ear pain, Epistaxis, Hearing loss, Throat pain Respiratory: Reports: As per HPI. Denies: Cough, Dyspnea, Hemoptysis, Stridor, Wheezes Cardiovascular: Reports: As per HPI. Denies: Arrhythmia, Chest pain, Dyspnea on exertion, Edema, Murmurs, Orthopnea, Palpitations, Paroxysmal nocturnal dyspnea, Rheumatic Fever, Syncope Endocrine: Reports: As per HPI. Denies: Fatigue, Heat or cold intolerance, Polydipsia, Polyuria Gastrointestinal: Reports: As per HPI. Denies: Abdominal pain, Constipation, Di arrhea, Hematemesis, Hematochezia, Melena, Nausea, Vomiting Genitourinary: Reports: As per HPI. Denies: Dysuria, Frequency, Hematuria, Incontinence, Retention, Testicular pain, Testicular mass, Urgency Musculoskeletal: Reports: As per HPI. Denies: Arthralgia, Back pain, Gout, Joint swelling, Myalgia, Neck pain Skin: Reports: As per HPI. Denies: Bruising, Change in color, Change in hair/nails, Lesions, Pruritus, Rash Neurological: Reports: As per HPI. Denies: Abnormal gait, Confusion, Headache, Numbness, Paresthesias, Seizure, Tingling, Tremors, Vertigo, Weakness Psychiatric: Reports: As per HPI. Denies: Anxiety, Auditory hallucinations, Depression, Homicidal thoughts, Suicidal thoughts, Visual hallucinations Hematological/Lymphatic: Reports: As per HPI. Denies: Anemia, Blood Clots, Easy bleeding, Easy bruising, Swollen glands Past Medical History - SOCIAL HISTORY Smoking Status: Former smoker - RESPIRATORY Hx Respiratory Disorders: Yes Hx Bronchitis: Yes Hx COPD: Yes (bothered with humidity) Hx Dyspnea: Yes (LAST WEEK-BETTER AFTER RESP RX AT HOME) - CARDIOVASCULAR Hx Cardio Disorders: Yes Hx Cardiac Cath: Yes (APR 2016) Hx Hypertension: Yes (MED[facility] GOOD CONTROL) Hx Coronary Stent: Yes (APR 2016 X 4) Comment:: high cholesterol - NEURO Hx Neuro Disorders: No - GI Hx GI Disorders: Yes Hx Reflux: Yes (occasional) - Hx Genitourinary Disorders: Yes Hx Bladder Problem: Yes (NOT RECENTLY-YRS AGO) - ENDOCRINE Hx Endocrine Disorders: Yes Hx Diabetes: Yes Hx Thyroid Disease: Yes (low) Comment:: RECENT ACCUCHECK 129 TODAY-CHECKS 3 X DAY - MUSCULOSKELETAL Hx Musculoskeletal Disorders: Yes Hx Arthritis: Yes (HANDS) - PSYCH Hx Psych Problems: No - HEMATOLOGY/ONCOLOGY Hx Hematology/Oncology Disorders: Yes Hx Cancer: Yes (FROM NOSE RECENTLY) Family Medical History Any Significant Family History?: Yes Hx Dementia: Mother Hx HTN: Mother Hx Stroke: Mother Physical Exam - General General Appearance: Alert, Oriented x3, Cooperative, No acute distress - Head Head exam: Normal inspection - Eye Eye exam: Normal appearance, PERRL, EOMI. negative: Conjunctival injection, Nystagmus Pupils: Normal accommodation - ENT ENT exam: Normal exam, Mucous membranes moist, Normal external ear exam, Normal orophraynx, TM's normal bilaterally Ear exam: Normal external inspection. negative: External canal tenderness Nasal Exam: Normal inspection. negative: Discharge, Sinus tenderness Mouth exam: Normal external inspection, Tongue normal Teeth exam: Normal inspection. negative: Dental caries Throat exam: Normal inspection. negative: Tonsillar erythema, Tonsillar exudate - Neck Neck exam: Normal inspection, Full ROM. negative: Tenderness - Respiratory Respiratory exam: Decreased breath sounds (chronically and at baseline). negative: Respiratory distress - Cardiovascular Cardiovascular Exam: Regular rate, Normal rhythm, Normal heart sounds - GI/Abdominal GI/Abdominal exam: Soft, Normal bowel sounds. negative: Tenderness - Rectal Rectal exam: Deferred - exam: Deferred - Extremities Extremities exam: Normal inspection, Full ROM, Normal capillary refill, Other (left hand with mild swelling, warmth and erythema to dorsal hand. No bites, no bony tenderness.). negative: Tenderness - Back Back exam: Reports: Normal inspection, Full ROM. Denies: Muscle spasm, Rash noted, Tenderness - Neurological Neurological exam: Alert, Normal gait, Oriented X3, Reflexes normal - Psychiatric Psychiatric exam: Normal affect, Normal mood - Skin Skin exam: Dry, Intact, Normal color, Warm Course Vital Signs 12/24/18 12/24/18 11:54 12:10 Temperature 98.0 F 98.0 F Pulse Rate 90 90 Respiratory 20 20 Rate Blood Pressure 141/95 141/95 Pulse Ox 95 95 Medical Decision Making - Management Options MDM Management: No Additional Work-up Planned Disposition Disposition: Discharge Clinical Impression: Cellulitis of left hand Disposition: Home, Self-Care Condition: (2) Stable Instructions: Cellulitis (ED) Additional Instructions: No use of left hand. Take antibiotics as directed until gone. Clindamycin as directed until gone. PCP follow up recheck of hand Wednesday in office. Prescriptions: Clindamycin HCl [Cleocin HCl] 300 mg PO QID #39 capsule Forms: Patient Portal Access Quality - Quality Measures Quality Measures: N/A - Blood Pressure Screening Does Patient Have Any of the Following: No Blood Pressure Classification: Hypertensive Reading Systolic Measurement: 141 Diastolic Measurement: 95 Screening for High Blood Pressure: < Pre-Hypertensive BP, F/U Documented > [G8950] Pre-Hypertensive Follow-up Interventions: Follow-up with rescreen every year.
[2018-12-24] MEDS ORDERED: CLINDAMYCIN 150 MG CAP PO ONE (12:27)
== END 2018-12-24 12:39 | disposition home or self-care (01) ==
LOC: ER 11:52
DX: L03.114 Cellulitis of left upper limb (principal); J44.9 Chronic obstructive pulmonary disease, unspecified; I10 Essential (primary) hypertension; E11.9 Type 2 diabetes mellitus without complications; Z79.4 Long term (current) use of insulin; Z87.891 Personal history of nicotine dependence
CPT/HCPCS: 99282